=== PATIENT | female | born 1995 | race Caucasian/White ===

== ENCOUNTER 2017-07-08 16:49 | Emergency (ER) | payer OTHER ==
[~2017-07-08] VITALS: Ht 175.3 cm; Wt 77.0 kg
[2017-07-08 16:59] VITALS: Ht 175.3 cm; Wt 77.0 kg
--- NOTE | 2017-07-08 19:29 | EMERGENCY ROOM VISIT NOTE ---
History First contact with patient: 19:25 Chief Complaint: ABDOMINAL PAIN Stated Complaint: AB PAIN IN LOWER RIGHT SIDE Nursing Triage Summary: pt to the ED with c/o right sided abd pain since 1pm today History of Present Illness The patient is a 22 year old female who presents to the Emergency Room with complaints of right lower quadrant abdominal pain. The patient states that she began noticing pain approximately 1:00 today. She was seen at [facility] and was sent to the emergency department for further evaluation. The patient denies having any dysuria or frequency. She is sexually active but denies having any discharge or vaginal bleeding. The patient had a test at [facility] which was negative. She does have some back pain but denies having any hematuria. She denies having any chest pain or shortness of breath. She denies having any fever. She has not had similar symptoms in the past. The patient states the pain is worsened with movement. She denies having any pelvic pain. She presented to the emergency department with her sister and her mother. Review of Systems See HPI for pertinent positives & negatives. A total of 10 systems reviewed and were otherwise negative. Past Medical/Surgical History Medical Problems: (1) No Known Active Medical Problems Social History Smoking Status: Never Smoker Smokeless Tobacco Use: No Alcohol Use: occasionally Drug Use: none Marital Status: single Current/Historical Medications Unable to Obtain Active Prescriptions or Reported Meds Physical Exam Vital Signs Date Time Temp Pulse Resp B/P (MAP) Pulse Ox O2 Delivery O2 Flow Rate FiO2 07/08/17 20:55 74 16 127/79 97 Room Air 07/08/17 20:27 79 07/08/17 20:07 88 16 131/86 97 Room Air 07/08/17 16:59 36.7 72 16 118/82 100 Room Air Physical Exam GENERAL: Patient is awake alert in no acute distress patient is resting comfortably and showing no signs of anxiety EYES: The conjunctivae are clear. The pupils are round and reactive. EARS, NOSE, MOUTH AND THROAT: The nose is without any evidence of any deformity. Mucous membranes are moist tongue is midline NECK: The neck is nontender and supple. RESPIRATORY: Normal respiratory effort is noted there is no evidence of wheezing rhonchi or rales CARDIOVASCULAR: Regular rate and rhythm noted there no murmurs rubs or gallops normal S1 normal S2 GASTROINTESTINAL: The abdomen is soft and nondistended. The patient has reproducible right lower quadrant tenderness to palpation but no guarding or rigidity is noted. BACK: No midline tenderness is noted. No CVA tenderness was noted to percussion. MUSCULOSKELETAL/EXTREMITIES: There is no evidence of gross deformity full range of motion is noted in the hips and shoulders SKIN: There is no obvious evidence of any rash. NEUROLOGIC: Patient is awake alert and oriented x3. Medical Decision & Procedures ER Provider Diagnostic Interpretation: ABD/PELVIS IV CONTRAST ONLY CT DOSE: 320.01 mGy.cm HISTORY: Pain. Nausea. rlq pain TECHNIQUE: Multiaxial CT images of the abdomen and pelvis were performed following the use of intravenous contrast. A dose lowering technique was utilized adhering to the principles of ALARA. COMPARISON STUDY: None. FINDINGS: The lung bases are clear. The liver, spleen, gallbladder, pancreas, kidneys, and adrenal glands are within normal limits. No bowel wall thickening or obstruction. The pelvis demonstrates a normal-appearing appendix. Bowel pattern is nonobstructive. There is a 4 x 2 cm right ovarian cyst. There is small amount of free fluid within the right lateral pelvic cul-de-sac medially posterior to the right ovarian cyst. Uterus is anteflexed. There is an intrauterine device present. IMPRESSION: 1. 4 x 2 cm right ovarian cyst. 2. Trace free fluid within the pelvic cul-de-sac. 3. Nonobstructive bowel pattern. 4. Normal appendix. The above report was generated using voice recognition software. It may contain grammatical, syntax or spelling errors. Electronically signed by: Sal Saucedo M.D. 07/08/2017 8:13 PM Dictated Date/Time: 07/08/2017 8:10 PM Laboratory Results 07/08/17 19:40 Red Blood Count 4.96, Mean Corpuscular Volume 86.9, Mean Corpuscular Hemoglobin 30.4, Mean Corpuscular Hemoglobin Concent 35.0, Mean Platelet Volume 10.5, Neutrophils (%) (Auto) 50.8, Lymphocytes (%) (Auto) 42.3, Monocytes (%) (Auto) 6.2, Eosinophils (%) (Auto) 0.3, Basophils (%) (Auto) 0.2, Neutrophils # (Auto) 3.13, Lymphocytes # (Auto) 2.60, Monocytes # (Auto) 0.38, Eosinophils # (Auto) 0.02, Basophils # (Auto) 0.01 07/08/17 19:40 Test 07/08/17 19:40 White Blood Count 6.15 K/uL (4.8-10.8) Red Blood Count 4.96 M/uL (4.2-5.4) Hemoglobin 15.1 g/dL (12.0-16.0) Hematocrit 43.1 % (37-47) Mean Corpuscular Volume 86.9 fL (80-100) Mean Corpuscular Hemoglobin 30.4 pg (25-34) Mean Corpuscular Hemoglobin Concent 35.0 g/dl (32-36) Platelet Count 235 K/uL (130-400) Mean Platelet Volume 10.5 fL (7.4-10.4) Neutrophils (%) (Auto) 50.8 % Lymphocytes (%) (Auto) 42.3 % Monocytes (%) (Auto) 6.2 % Eosinophils (%) (Auto) 0.3 % Basophils (%) (Auto) 0.2 % Neutrophils # (Auto) 3.13 K/uL (1.4-6.5) Lymphocytes # (Auto) 2.60 K/uL (1.2-3.4) Monocytes # (Auto) 0.38 K/uL (0.11-0.59) Eosinophils # (Auto) 0.02 K/uL (0-0.5) Basophils # (Auto) 0.01 K/uL (0-0.2) RDW Standard Deviation 41.2 fL (36.4-46.3) RDW Coefficient of Variation 12.9 % (11.5-14.5) Immature Granulocyte % (Auto) 0.2 % Immature Granulocyte # (Auto) 0.01 K/uL (0.00-0.02) Urine Color DK YELLOW Urine Appearance CLOUDY (CLEAR) Urine pH 5.5 (4.5-7.5) Urine Specific [place] 1.031 (1.000-1.030) Urine Protein NEG (NEG) Urine Glucose (UA) NEG (NEG) Urine Ketones 2+ (NEG) Urine Occult Blood NEG (NEG) Urine Nitrite NEG (NEG) Urine Bilirubin NEG (NEG) Urine Urobilinogen NEG (NEG) Urine Leukocyte Esterase SMALL (NEG) Urine WBC (Auto) 10-30 /hpf (0-5) Urine RBC (Auto) 0-4 /hpf (0-4) Urine Hyaline Casts (Auto) 0 /lpf (0-5) Urine Epithelial Cells (Auto) >30 /lpf (0-5) Urine Bacteria (Auto) 2+ (NEG) Urine Pathogenic Casts /lpf (0) Urine Mucus PRESENT (NONE PRSENT) Anion Gap 8.0 mmol/L (3-11) Est Creatinine Clear Calc Drug Dose 128.5 ml/min Estimated GFR () 137.4 Estimated GFR (Non- 118.6 BUN/Creatinine Ratio 10.1 (10-20) Calcium Level 9.2 mg/dl (8.5-10.1) Total Bilirubin 0.4 mg/dl (0.2-1) Direct Bilirubin 0.1 mg/dl (0-0.2) Aspartate Amino Transf (AST/SGOT) 11 U/L (15-37) Alanine Aminotransferase (ALT/SGPT) 14 U/L (12-78) Alkaline Phosphatase 71 U/L (45-117) Total Protein 7.6 gm/dl (6.4-8.2) Albumin 4.2 gm/dl (3.4-5.0) Lipase 88 U/L (73-393) Human Chorionic Gonadotropin, Qual NEG (NEG) Medications Administered Medications (Trade) Dose Ordered Sig/Joss Route Start Time Stop Time Status Last Admin Dose Admin Sodium Chloride 1,000 ml @ 999 mls/hr Q1H1M STAT IV 07/08/17 19:35 07/08/17 20:35 DC 07/08/17 19:49 999 MLS/HR Ondansetron HCl (Zofran Inj) 4 mg NOW STAT IV 07/08/17 19:35 07/08/17 19:37 DC 07/08/17 19:48 4 MG Morphine Sulfate (MoRPHine SULFATE INJ) 4 mg Q15M PRN IV 07/08/17 19:45 07/08/17 21:36 DC 07/08/17 19:48 4 MG Ketorolac Tromethamine (Toradol Inj) 30 mg NOW STAT IV 07/08/17 20:27 07/08/17 20:28 DC 07/08/17 20:46 30 MG Oxycodone HCl (Roxicodone Immediate Rel 5MG Home Pack) 1 homepack UD ONCE PO 07/08/17 20:30 07/08/17 20:31 DC 2/9/18 20:45 1 HOMEPACK Ondansetron HCl (ZOFRAN ODT 4MG Home Pack) 1 homepack UD ONCE PO 07/08/17 20:30 07/08/17 20:31 DC 07/08/17 20:45 1 HOMEPACK Medical Decision Prior records/ancillary studies reviewed. Triage Nursing notes reviewed. The patient's history was concerning for abdominal pain. Differential diagnosis: Etiologies such as appendicitis, diverticulitis, PUD, biliary pathology, UTI, pancreatitis, obstruction, mesenteric ischemia, aortic pathology, infections, inflammatory bowel disease, renal colic, as well as others were entertained. The patient is a 22-year-old female who presented to the emergency department for evaluation of right lower quadrant abdominal pain. The patient was initially seen at [facility]. She was sent to the emergency department for the possibility of appendicitis. The patient's physical exam was not consistent with an acute surgical abdomen however her pain began gradually today at approximately 1:00 PM. The patient did not have any vaginal bleeding or discharge. The patient was treated with IV fluids IV pain medicine and IV antiemetics. On subsequent reevaluation she was feeling much better. I discussed patient's laboratory and radiographic studies with her and her mother. At this time she does appear to have an ovarian cyst on CT. She does not appear to have a physical exam consistent with torsion. She was encouraged to rest and avoid any strenuous activity. I also encouraged her to continue all medications as prescribed. She was also given follow-up information with the on-call [facility] [employer] physician. She was also encouraged to return the emergency department immediately if symptoms change worsening of the need arises. Impression Primary Impression: Right lower quadrant abdominal pain Additional Impression: Ovarian cyst Departure Information Dispostion Home / Self-Care Condition GOOD Prescriptions Unable to Obtain Active Prescriptions or Reported Meds Referrals No Doctor, Assigned (PCP) Patient Instructions My [facility] Health Problem Qualifiers Additional Impression: Ovarian cyst Laterality: right Qualified Codes: N83.201 - Unspecified ovarian cyst, right side
[2017-07-08] MEDS ORDERED: ONDANSETRON INJ 2 MG/ML 2 ML VIAL IV STA (19:35)
[2017-07-08] MEDS ORDERED: SODIUM CHLORIDE 0.9% 1000ML 1,000 ML IV STA (19:35)
[2017-07-08] MEDS ORDERED: MoRPHine SULFATE 4 MG/ML 1 ML CARP\\VIAL IV PRN (19:45)
[2017-07-08 19:56] LABS: BASO % 0.2 %; BASO ABS # 0.01 K/uL (0-0.2); EOS % 0.3 %; EOS ABS # 0.02 K/uL (0-0.5); HEMATOCRIT 43.1 % (37-47); HEMOGLOBIN 15.1 g/dL (12.0-16.0); IG# 0.01 K/uL (0.00-0.02); LYMPH % 42.3 %; MEAN CELL VOLUME 86.9 fL (80-100); MEAN CORPUSCULAR HEMOGLOBIN 30.4 pg (25-34); MEAN PLATELET VOLUME 10.5 fL (7.4-10.4); MONO % 6.2 %; MONO ABS # 0.38 K/uL (0.11-0.59); NEUT % 50.8 %; NEUT ABS # 3.13 K/uL (1.4-6.5); PLATELET COUNT 235 K/uL (130-400); RED CELL DISTRIBUTION WIDTH CV 12.9 % (11.5-14.5); RED CELL DISTRIBUTION WIDTH SD 41.2 fL (36.4-46.3); WHITE BLOOD COUNT 6.15 K/uL (4.8-10.8)
[2017-07-08] MEDS ORDERED: OPTIRAY 320 IV PRN (20:00)
[2017-07-08 20:14] LABS: ALBUMIN 4.2 gm/dl (3.4-5.0); CALCIUM 9.2 mg/dl (8.5-10.1); CREATININE 0.73 mg/dl (0.60-1.20); POTASSIUM 3.9 mmol/L (3.5-5.1)
--- NOTE | 2017-07-08 20:14 | DIAGNOSTIC IMAGING REPORT ---
ABD/PELVIS IV CONTRAST ONLY CT DOSE: 320.01 mGy.cm HISTORY: Pain. Nausea. rlq pain TECHNIQUE: Multiaxial CT images of the abdomen and pelvis were performed following the use of intravenous contrast. A dose lowering technique was utilized adhering to the principles of ALARA. COMPARISON STUDY: None. FINDINGS: The lung bases are clear. The liver, spleen, gallbladder, pancreas, kidneys, and adrenal glands are within normal limits. No bowel wall thickening or obstruction. The pelvis demonstrates a normal-appearing appendix. Bowel pattern is nonobstructive. There is a 4 x 2 cm right ovarian cyst. There is small amount of free fluid within the right lateral pelvic cul-de-sac medially posterior to the right ovarian cyst. Uterus is anteflexed. There is an intrauterine device present. IMPRESSION: 1. 4 x 2 cm right ovarian cyst. 2. Trace free fluid within the pelvic cul-de-sac. 3. Nonobstructive bowel pattern. 4. Normal appendix. The above report was generated using voice recognition software. It may contain grammatical, syntax or spelling errors. Electronically signed by: Sal Saucedo M.D. 07/08/2017 8:13 PM Dictated Date/Time: 07/08/2017 8:10 PM
[2017-07-08 20:17] LABS: TOTAL PROTEIN 7.6 gm/dl (6.4-8.2)
[2017-07-08] MEDS ORDERED: KETOROLAC TROMETHAMINE 30 MG/ML VIAL IV STA (20:27)
[2017-07-08] MEDS ORDERED: OXYCODONE IR HOME PACK PO ONE (20:30)
[2017-07-08] MEDS ORDERED: ONDANSETRON HOME PACK 4MG OD TAB PO ONE (20:30)
[2017-07-08 20:55] VITALS: BP 127/79; PULSE 74; O2SAT 97
[2017-07-11 11:28] LABS: ISTAT CREATININE 0.7 mg/dl; ISTAT IONIZED CALCIUM 1.24 mmol/l; ISTAT POTASSIUM 4.1 mEq/L (3.3-5.0); ISTAT SODIUM 139 mEq/L (135-144)
== END 2017-07-08 21:06 | disposition home or self-care (01) ==
LOC: C.EDB 16:52 → C.EDC 21:06
DX: R10.31 Right lower quadrant pain (principal); N83.201 Unspecified ovarian cyst, right side; M54.9 Dorsalgia, unspecified

== ENCOUNTER → 2017-07-22 | Outpatient (CLI) | payer OTHER | END | disposition home or self-care (01) | LOC: C.LABSPEC 13:33 | PROVIDERS: ATTEND Physician Assistant | DX: Z11.3 Encounter for screening for infections with a predominantly sexual mode of transmission (principal) ==